=== PATIENT | female | born 1975 | race Caucasian/White ===

== ENCOUNTER → 2020-02-26 07:52 | Outpatient (CLI) | payer BC | END | disposition home or self-care (01) | LOC: D.US 02-19 09:30 | PROVIDERS: ATTEND Family Medicine | DX: R10.11 Right upper quadrant pain (principal) ==

== ENCOUNTER → 2020-03-08 12:39 | Outpatient (CLI) | payer BC | END | disposition home or self-care (01) | LOC: D.NM 12:39 | PROVIDERS: ATTEND Family Medicine | DX: K81.9 Cholecystitis, unspecified (principal) ==